=== PATIENT | female | born 1950 | race Caucasian/White ===

== ENCOUNTER 2016-12-03 08:42 | Emergency (ER) | payer OTHER, MEDICARE ==
[~2016-12-03] VITALS: Ht 165.1 cm; Wt 86.2 kg
--- NOTE | 2016-12-03 08:54 | ED CARDIAC/CP/PALPITATIONS ---
History of Present Illness General Chief Complaint: Palpitations Stated Complaint: PALPITATIONS Source: patient, old records Exam Limitations: no limitations Vital Signs & Intake/Output Vital Signs & Intake/Output Vital Signs Date Time Temp Pulse Resp B/P B/P Pulse O2 O2 Flow FiO2 Mean Ox Delivery Rate 12/03 0854 116 20 160/92 98 Room Air 12/03 0850 190 160/92 12/03 0850 98.5 186 20 137/97 98 Room Air Allergies Coded Allergies: No Known Allergies (12/03/16) Reconcile Medications Atorvastatin Calcium 40 MG TABLET 1 TAB PO QPM CHOLESTEROL (Reported) Cholecalciferol (Vitamin D3) 1,000 UNIT TABLET 1 TAB PO DAILY VITAMIN SUPPORT (Reported) Cyanocobalamin (Vitamin B-12) 1,000 MCG TABLET 1 TAB PO DAILY VITAMIN SUPPORT (Reported) Levothyroxine Sodium 112 MCG TABLET 1 TAB PO DAILY AC THYROID (Reported) Liothyronine Sodium 5 MCG TABLET 1 TAB PO DAILY AC THYROID (Reported) Liraglutide (Victoza 3-Maxx) 0.6 MG/0.1 ML (18 MG/3 ML) PEN.INJCTR 1.8 U SC DAILY DIABETES (Reported) Losartan Potassium 100 MG TABLET 1 TAB PO DAILY HEART (Reported) Metoprolol Succinate 50 MG TAB.ER.24H 2 TAB PO DAILY HEART (Reported) Triage Note: PT TO ED C/O "HEART RACING" X 45 MINS. STATES STARTED DURING DEEP WATER AEROBICS. HAS HAPPENED IN THE PAST, ADENOSINE WAS GIVEN WITH SUCCESS. PT TO ROOM 3. DR SMITH IN FOR EVAL. Triage Nurses Notes Reviewed? yes HPI: Patient was doing the water was class when she felt a sudden onset of palpitations. Patient denies any chest pain. Patient states when the symptoms first started she felt lightheaded. Subsequently resolved. There is no difficulty breathing. Patient does have a history of paroxysmal SVT and she states that she is usually able to break it on her own. Patient has been coughing and attempted to take deep breaths in an effort to break it but has been unable to. Patient denies any chest pain or chest tightness. There is no shortness of breath. There is no headache. There is no nausea or vomiting. There is no diaphoresis. Patient states that there was one other time where cannot break and she required adenosine in the emergency department. Past History Travel History Traveled to [place] past 21 day No Medical History Any Pertinent Medical History? see below for history Cardiovascular: hypertension, hyperlipidemia Endocrine: diabetes Surgical History Surgical History: non-contributory Psychosocial History What is your primary language Polish Tobacco Use: Never used ETOH Use: denies use Illicit Drug Use: denies illicit drug use Family History Hx Contributory? No Review of Systems Review of Systems Constitutional: Reports: no symptoms. EENTM: Reports: no symptoms. Respiratory: Reports: no symptoms. Cardiovascular: Reports: see HPI, palpitations. GI: Reports: no symptoms. Genitourinary: Reports: no symptoms. Musculoskeletal: Reports: no symptoms. Skin: Reports: no symptoms. Neurological/Psychological: Reports: no symptoms. Hematologic/Endocrine: Reports: no symptoms. Immunologic/Allergic: Reports: no symptoms. All Other Systems: Reviewed and Negative Physical Exam Physical Exam General Appearance: well developed/nourished, alert, awake, anxious, mild distress Head: atraumatic, normal appearance Eyes: Bilateral: PERRL, EOMI. Ears, Nose, Throat: normal pharynx, normal ENT inspection, hearing grossly normal Neck: normal inspection, supple, full range of motion Respiratory: normal breath sounds, chest non-tender, no respiratory distress, lungs clear Cardiovascular: normal peripheral pulses, tachycardia Gastrointestinal: normal bowel sounds, soft, non-tender, no organomegaly Back: normal inspection, normal range of motion Extremities: normal inspection, normal capillary refill, normal range of motion, no edema Neurologic/Psych: no motor/sensory deficits, awake, alert, oriented x 3, normal gait, normal mood/affect Skin: intact, normal color, warm/dry Core Measures ACS in differential dx? No Severe Sepsis Present: No Septic Shock Present: No Progress Differential Diagnosis: PSVT, ELECTROLYTE ABNORAMLITY Plan of Care: Orders Procedure Date/time Status Telemetry/Method Consultant 12/03 0854 Active THYROID STIMULATING HORMONE 12/03 0854 Complete TROPONIN LEVEL 12/03 0854 Complete MAGNESIUM 12/03 0854 Complete COMPREHENSIVE METABOLIC PANEL 12/03 0854 Complete CBC WITHOUT DIFFERENTIAL 12/03 0854 Complete EKG 12/03 0844 Active Laboratory Tests 12/03/16 0820: Anion Gap 10, Estimated GFR > 60, BUN/Creatinine Ratio 26.7 H, Glucose 219 H, Calcium 9.1, Magnesium 1.8, Total Bilirubin 0.8, AST 29, ALT 48, Alkaline Phosphatase 114, Troponin I 0.04, Total Protein 6.3, Albumin 3.9, Globulin 2.4, Albumin/Globulin Ratio 1.6, TSH 1.390, CBC w Diff NO MAN DIFF REQ, RBC 4.61, MCV 91.3, MCH 31.5 H, RDW 12.8, MPV 7.4, Gran % 66.8, Lymphocytes % 25.3, Monocytes % 5.8, Eosinophils % 1.7, Basophils % 0.4, Absolute Granulocytes 4.4, Absolute Lymphocytes 1.7, Absolute Monocytes 0.4, Absolute Eosinophils 0.1, Absolute Basophils 0, PUBS MCHC 34.5 Initial ED EKG: SVT AT [address] DEPRESSIONS Rhythm Strip: normal sinus rhythm Comments: SVT BROKE WITH 6MG OF IV ADENOSINE. Departure Departure Disposition: HOME OR SELF CARE Condition: Stable Clinical Impression Primary Impression: PSVT (paroxysmal supraventricular tachycardia) Additional Instructions: FOLLOW UP WITH YOUR SOLUTIONS CONSULTANT RETURN IF SYMPTOMS COME BACK OR FOR ANY CONCERNS Departure Forms: Customer Survey General Discharge Information Critical Care Note Critical Care Note Critical Care Time: non-applicable
[2016-12-03 09:31] LABS: ABSOLUTE BASOPHIL COUNT 0 /CUMM (0.0-0.2); ABSOLUTE EOSINOPHIL COUNT 0.1 /CUMM (0.0-0.7); ABSOLUTE GRANULOCYTE CT 4.4 /CUMM (1.4-6.5); ABSOLUTE LYMPH COUNT 1.7 /CUMM (1.2-3.4); ABSOLUTE MONOCYTE COUNT 0.4 /CUMM (0.10-0.60); BASOPHIL % 0.4 % (0.0-2.0); EOSINOPHIL % 1.7 % (0-5); GRANULOCYTE % 66.8 % (42.2-75.2); HEMATOCRIT 42.1 % (37-47); MEAN CORPUSCULAR HGB 31.5 PG (27.0-31.0); MEAN CORPUSCULAR HGB CONC 34.5 G/DL (33.0-37.0); MEAN CORPUSCULAR VOLUME 91.3 FL (81.0-99.0); MEAN PLATELET VOLUME 7.4 FL (7.4-10.4); PLATELET COUNT 234 /CUMM (130-400); RBC DISTRIBUTION WIDTH 12.8 % (11.5-14.5); RED BLOOD CELL CT 4.61 /CUMM (4.20-5.40); WHITE BLOOD CELL COUNT 6.6 /CUMM (4.8-10.8)
[2016-12-03] MEDS ORDERED: VICTOZA 3-0.6 MG/0.1 SC (09:55)
[2016-12-03] MEDS ORDERED: VITAMIN D31000 UNI2 PO (09:55)
[2016-12-03] MEDS ORDERED: ATORVASTATIN CA40 M1 PO (09:56)
[2016-12-03] MEDS ORDERED: VITAMIN B-121000 MC3 PO (09:56)
[2016-12-03] MEDS ORDERED: LOSARTAN POTAS100 M1 PO (09:56)
[2016-12-03] MEDS ORDERED: LIOTHYRONINE SO5 MC1 PO (09:57)
[2016-12-03] MEDS ORDERED: LEVOTHYROXINE112 MCG PO (09:57)
[2016-12-03] MEDS ORDERED: METOPROLOL SUCC50 M2 PO (09:57)
[2016-12-03 10:49] VITALS: BP 126/84
== END 2016-12-03 10:52 ==
LOC: ERH 08:42
PROVIDERS: Emergency Medicine
DX: I47.1 Supraventricular tachycardia (principal)
CPT/HCPCS: 93005; 93010; 96374; J0153

== ENCOUNTER 2017-01-07 08:27 | Emergency (ER) | payer OTHER, MEDICARE ==
[~2017-01-07] VITALS: Ht 167.6 cm; Wt 86.2 kg
[~2017-01-07 08:27] MED LIST: ATORVASTATIN CA40 M1 PO; LEVOTHYROXINE112 MCG PO; LIOTHYRONINE SO5 MC1 PO; LOSARTAN POTAS100 M1 PO; METOPROLOL SUCC50 M2 PO; VICTOZA 3-0.6 MG/0.1 SC; VITAMIN B-121000 MC3 PO; VITAMIN D31000 UNI2 PO
--- NOTE | 2017-01-07 08:34 | ED GENERAL ADULT ---
History of Present Illness General Chief Complaint: Palpitations Stated Complaint: PT STATE "I HAVE THAT TACHACARDIA THING" Source: patient Exam Limitations: no limitations Vital Signs & Intake/Output Vital Signs & Intake/Output Vital Signs Date Time Temp Pulse Resp B/P B/P Pulse O2 O2 Flow FiO2 Mean Ox Delivery Rate 01/07 1125 98.9 94 18 145/74 100 Room Air 01/07 1030 97.8 96 20 156/85 95 Room Air 01/07 0940 99 Room Air 01/07 0936 103 18 165/85 100 Room Air 01/07 0848 188 162/112 01/07 0839 96.7 188 20 162/112 99 Nasal 2.0L Cannula Allergies Coded Allergies: No Known Allergies (12/03/16) Reconcile Medications Aspirin (Aspirin*) 81 MG TAB.CHEW 1 TAB PO DAILY HEART HEALTH (Reported) Atorvastatin Calcium 40 MG TABLET 1 TAB PO QPM CHOLESTEROL (Reported) Cholecalciferol (Vitamin D3) 1,000 UNIT TABLET 1 TAB PO QPM VITAMIN SUPPORT ( Reported) Cyanocobalamin (Vitamin B-12) 1,000 MCG TABLET 1 TAB PO QPM VITAMIN SUPPORT ( Reported) Levothyroxine Sodium 112 MCG TABLET 1 TAB PO DAILY AC THYROID (Reported) Liothyronine Sodium 5 MCG TABLET 1 TAB PO DAILY AC THYROID (Reported) Liraglutide (Victoza 3-Maxx) 0.6 MG/0.1 ML (18 MG/3 ML) PEN.INJCTR 1.8 U SC DAILY DIABETES (Reported) Losartan Potassium 100 MG TABLET 1 TAB PO DAILY HEART (Reported) Metoprolol Succinate 50 MG TAB.ER.24H 2 TAB PO DAILY HEART (Reported) Triage Nurses Notes Reviewed? yes Onset: Abrupt Duration: hour(s): Timing: recent history HPI: SVT 58-year-old female presented to the emergency department with a sudden onset of palpitations and diaphoresis. Her heart rate was 200 bpm on arrival. She was in severe distress. She was immediately placed on a monitor, oxygen was given, and she was treated with 6 mg of IV adenosine. She broke into sinus tachycardia .She denied shortness of breath. The onset of the symptoms were abrupt. The duration was just today. The severity was significant as her symptoms required her to come to the emergency department for care. Past History Medical History Any Pertinent Medical History? see below for history Cardiovascular: hypertension, hyperlipidemia, svt Endocrine: diabetes Surgical History Surgical History: non-contributory Psychosocial History What is your primary language Kazakh Family History Hx Contributory? No Review of Systems Review of Systems Constitutional: Denies: fever. EENTM: Denies: visual changes. Respiratory: Reports: short of breath. Cardiovascular: Reports: chest pain. GI: Denies: abdominal pain. Genitourinary: Reports: no symptoms. Musculoskeletal: Reports: no symptoms. Skin: Denies: rash. Neurological/Psychological: Reports: no symptoms. Hematologic/Endocrine: Reports: no symptoms. Immunologic/Allergic: Reports: no symptoms. Physical Exam Physical Exam General Appearance: well developed/nourished, alert, awake, anxious, moderate distress Head: atraumatic, normal appearance Eyes: Bilateral: normal appearance, PERRL, EOMI. Ears, Nose, Throat: normal pharynx, normal ENT inspection Neck: normal inspection, supple, full range of motion Respiratory: normal breath sounds, chest non-tender, no respiratory distress Cardiovascular: tachycardia Peripheral Pulses: 1+ radial (R), 1+ radial (L) Gastrointestinal: non-tender Back: normal range of motion Extremities: normal inspection Neurologic/Psych: no motor/sensory deficits, awake, alert, oriented x 3 Skin: diaphoresis Core Measures ACS in differential dx? No CVA/TIA Diagnosis: No Severe Sepsis Present: No Septic Shock Present: No Progress Differential Diagnoses I considered the following diagnoses in my evaluation of the patient: [SVT, acute coronary syndrome, pulmonary embolism] Plan of Care: Orders Procedure Date/time Status EKG 01/07 1056 Active THYROID STIMULATING HORMONE 01/07 0845 Complete TROPONIN LEVEL 01/07 0845 Complete FREE T4 01/07 0845 Complete COMPREHENSIVE METABOLIC PANEL 01/07 0845 Complete CBC WITHOUT DIFFERENTIAL 01/07 0845 Complete EKG 01/07 0829 Active Laboratory Tests 01/07/17 0916: Anion Gap 11, Estimated GFR > 60, BUN/Creatinine Ratio 24.3, Glucose 226 H, Calcium 9.3, Total Bilirubin 0.6, AST 55 H, ALT 64 H, Alkaline Phosphatase 114 , Troponin I < 0.01, Total Protein 6.5, Albumin 4.0, Globulin 2.5, Albumin/ Globulin Ratio 1.6, TSH 1.110, Free T4 1.14, CBC w Diff NO MAN DIFF REQ, RBC 4.56, MCV 91.4, MCH 30.9, RDW 12.9, MPV 7.9, Gran % 69.5, Lymphocytes % 23.9, Monocytes % 4.4, Eosinophils % 1.2, Basophils % 1.0, Absolute Granulocytes 4.4, Absolute Lymphocytes 1.5, Absolute Monocytes 0.3, Absolute Eosinophils 0.1, Absolute Basophils 0.1, PUBS MCHC 33.8 Initial ED EKG: SVT Repeat EKG: changed (sinus rhythm) Departure Departure Disposition: STILL A PATIENT Condition: Stable Clinical Impression Primary Impression: SVT (supraventricular tachycardia) Secondary Impressions: Chest pain Referrals: GALA MAJANO (PCP/Family) Departure Forms: Customer Survey General Discharge Information Comments The patient remained asymptomatic. Her metoprolol was increased by 50 mg daily. She was told to follow-up with her oracle ebs developer on Tuesday or to return to the emergency department if worse. Critical Care Note Critical Care Note Critical Care Time: 30-74 min
[2017-01-07] MEDS ORDERED: ASPIRIN81 M4 PO (08:56)
[2017-01-07 09:32] LABS: ABSOLUTE BASOPHIL COUNT 0.1 /CUMM (0.0-0.2); ABSOLUTE EOSINOPHIL COUNT 0.1 /CUMM (0.0-0.7); ABSOLUTE GRANULOCYTE CT 4.4 /CUMM (1.4-6.5); ABSOLUTE LYMPH COUNT 1.5 /CUMM (1.2-3.4); ABSOLUTE MONOCYTE COUNT 0.3 /CUMM (0.10-0.60); EOSINOPHIL % 1.2 % (0-5); GRANULOCYTE % 69.5 % (42.2-75.2); HEMATOCRIT 41.7 % (37-47); MEAN CORPUSCULAR HGB 30.9 PG (27.0-31.0); MEAN CORPUSCULAR HGB CONC 33.8 G/DL (33.0-37.0); MEAN CORPUSCULAR VOLUME 91.4 FL (81.0-99.0); MEAN PLATELET VOLUME 7.9 FL (7.4-10.4); PLATELET COUNT 228 /CUMM (130-400); RBC DISTRIBUTION WIDTH 12.9 % (11.5-14.5); RED BLOOD CELL CT 4.56 /CUMM (4.20-5.40); WHITE BLOOD CELL COUNT 6.4 /CUMM (4.8-10.8)
[2017-01-07 11:25] VITALS: BP 145/74
== END 2017-01-07 11:26 ==
LOC: ERH 08:27
PROVIDERS: Emergency Medicine
DX: I47.1 Supraventricular tachycardia (principal); R07.9 Chest pain, unspecified
CPT/HCPCS: 93005; 93010; 96374; 99291; J0153